=== PATIENT | female | born 1985 | race African-American/Black ===

== ENCOUNTER 2017-06-24 21:20 | Emergency (ER) | payer OTHER ==
[~2017-06-24] VITALS: Ht 165.1 cm; Wt 77.1 kg
[2017-06-24 21:32] VITALS: BP 124/77
[2017-06-24] MEDS ORDERED: IBUPROFEN 400 MG TABLET PO ONE (22:30)
[2017-06-24] MEDS ORDERED: IBUPROFEN 400 MG TABLET ONE (22:50)
== END 2017-06-24 22:58 | disposition home or self-care (01) ==
LOC: ER 21:24
DX: M54.6 Pain in thoracic spine (principal); Z98.890 Other specified postprocedural states; V43.52XA Car driver injured in collision with other type car in traffic accident, initial encounter; Y93.89 Activity, other specified; Y92.89 Other specified places as the place of occurrence of the external cause; Y99.8 Other external cause status
CPT/HCPCS: 72074-TC; A4606; Z7610